=== PATIENT | male | born 1990 | race Caucasian/White ===

== ENCOUNTER 2020-06-09 09:36 | Emergency (ER) | payer BC, OTHER ==
[2020-06-09 09:48] VITALS: BP 135/54; PULSE 53
[2020-06-09] MEDS ORDERED: Ondansetron 4 MG/2 ML SDV IVPUSH ONE (09:50)
--- NOTE | 2020-06-09 10:01 | EDM.PDOC ---
<KimGeronimo maria - Last Filed: 06/09/20 10:45> ED HPI GENERAL MEDICAL PROBLEM - General Chief Complaint: Abdominal Pain Stated Complaint: ABDOMINAL PAIN Time Seen by Provider: 06/09/20 09:38 - Related Data Allergies Allergy/AdvReac Type Severity Reaction Status Date / Time No Known Allergies Allergy Verified 06/09/20 09:48 Home Meds: Home Meds Diclofenac Sodium [Voltaren] 50 mg PO Q8HR 7 Days #21 tab.ec 06/09/20 [Rx] Hydrocodone/Acetaminophen [[place] 5-325 Tablet] 1 each PO Q6H 5 Days #20 tablet 06/09/20 [Rx] Ondansetron [Zofran ODT] 4 mg PO Q6H PRN 4 Days #16 tab.dis 06/09/20 [Rx] Course - Re-Assessments/Exams Free Text/Narrative Re-Assessment/Exam: 06/09/20 10:45 Attending physician note I have seen and evaluated the patient with the advanced practice provider. Chief Complaint: Right flank pain Brief HPI: 29-year-old male with sudden onset right-sided flank pain radiating towards the right lower quadrant and groin. Even has some pain down into the testicles. Sudden onset. Severe. Cannot get into a comfortable position. Multiple episodes of vomiting. ROS: Reviewed and agree Focused Exam: VITAL SIGNS: Reviewed. GENERAL: Awake, conversant, GCS 15, appears uncomfortable, pale and diaphoretic, cannot get into a comfortable position HEAD: No visible signs of trauma EYES: Pupils equal, EOM grossly intact EARS: Hearing grossly intact. MOUTH: No visible lesions NECK: Appears supple CHEST: Breathing comfortably, clear lung sounds CARDIAC: Regular rhythm ABDOMEN: Soft, nontender, benign exam, no CVA tenderness NEUROLOGIC EXAM: Awake and Alert, non-focal SKIN: No visible rashes EXTREMITIES: No deformities noted VASCULAR: Appears well perfused Assessment & Plan: Biliary colic, renal colic, appendicitis Given the presentation the patient most likely has renal colic. We will obtain labs, UA, CT without contrast. Departure - Departure Disposition: Home, Self-Care 01 Clinical Impression: Kidney calculi - Discharge Information Prescriptions: Hydrocodone/Acetaminophen [[place] 5-325 Tablet] 1 each PO Q6H 5 Days #20 tablet Diclofenac Sodium [Voltaren] 50 mg PO Q8HR 7 Days #21 tab.ec Ondansetron [Zofran ODT] 4 mg PO Q6H PRN 4 Days #16 tab.dis PRN Reason: Nausea Referrals: PCP,None [Primary Care Provider] - Forms: ED Department Discharge <Deepika Miramontes - Last Filed: 06/09/20 11:58> ED HPI GENERAL MEDICAL PROBLEM - General Source of Information: Reports: Patient History Limitations: Reports: No Limitations - History of Present Illness INITIAL COMMENTS - FREE TEXT/NARRATIVE: 29 y.o male With no significant past medical history presenting this morning with abdominal pain starting in his right flank, right lower quadrant and suprapubic region as of 745 this morning. States the pain is constant and has not gotten any better. Still drank 1 energy drink this morning and last meal was last night. Denies any fevers, chills, body aches, hematuria, polyuria, dysuria, diarrhea, constipation has not used anything [id number]. Denies recent alcohol use. Denies illicit drug abuse ever. Denies any history of abdominal surgeries or any trauma. Onset: Today RLQ Pain Score (Numeric/FACES): 7 Past Medical History HEENT History: Reports: None Cardiovascular History: Reports: None Respiratory History: Reports: Pneumonia, Recurrent Gastrointestinal History: Reports: None Genitourinary History: Reports: None Musculoskeletal History: Reports: None Neurological History: Reports: None Psychiatric History: Reports: None Endocrine/Metabolic History: Reports: None Hematologic History: Reports: None Immunologic History: Reports: None Oncologic (Cancer) History: Reports: None Dermatologic History: Reports: None - Infectious Disease History Infectious Disease History: Reports: None - Past Surgical History Head Surgeries/Procedures: Reports: None HEENT Surgical History: Reports: None Cardiovascular Surgical History: Reports: None Respiratory Surgical History: Reports: None GI Surgical History: Reports: None Male Surgical History: Reports: None Endocrine Surgical History: Reports: None Neurological Surgical History: Reports: None Musculoskeletal Surgical History: Reports: Other (See Below) Oncologic Surgical History: Reports: None Dermatological Surgical History: Reports: None Social & Family History - Family History Family Medical History: Noncontributory - Tobacco Use Smoking Status *Q: Current Every Day Smoker Years of Tobacco use: 7 Packs/Tins Daily: 0.5 - Caffeine Use Caffeine Use: Reports: Energy Drinks, Soda - Recreational Drug Use Recreational Drug Use: No ED ROS GENERAL - Review of Systems Review Of Systems: See Below Constitutional: Reports: No Symptoms HEENT: Reports: No Symptoms Respiratory: Reports: No Symptoms Cardiovascular: Reports: No Symptoms GI/Abdominal: Reports: Abdominal Pain. Denies: Black Stool, Bloody Stool, Diff iculty Swallowing ED EXAM, GI/ABD - Physical Exam Exam: See Below Exam Limited By: No Limitations General Appearance: Alert, Mild Distress Ears: Normal External Exam, Normal Canal Nose: Normal Inspection Throat/Mouth: Normal Inspection, Normal Oropharynx Head: Atraumatic, Normocephalic Neck: Supple, Non-Tender Respiratory/Chest: No Respiratory Distress, Lungs Clear, Normal Breath Sounds, No Accessory Muscle Use, Chest Non-Tender Cardiovascular: Regular Rate, Rhythm GI/Abdominal Exam: Other (+abdominal tenderness in RLQ/right flamnk ...mild suprapubic tenderness...no rebound tenderness..no rebound tenderness...normoactive BS ) (Male) Exam: Other (no testicualr tenderness ) Back Exam: Full Range of Motion Extremities: Normal Range of Motion, Non-Tender Neurological: Alert, Oriented, Normal Cognition Psychiatric: Normal Affect Skin Exam: Warm Course - Vital Signs Last Recorded V/S: Last Vital Signs Temp 96.5 F L 06/09/20 09:46 Pulse 53 L 06/09/20 09:46 Resp 17 06/09/20 09:46 BP 135/54 L 06/09/20 09:46 Pulse Ox 98 06/09/20 09:46 - Orders/Labs/Meds Orders: Active Orders 24 hr Category Date Time Status Promethazine [Phenergan] Med 06/09/20 10:13 Active 25 mg PO Q4H PRN Medication Orders Promethazine HCl (Phenergan) 25 mg PO Q4H PRN PRN Reason: Nausea/Vomiting Labs: Laboratory Tests 06/09/20 06/09/20 06/09/20 Range/Units 09:47 09:47 10:03 WBC 7.64 (4.0-11.0) K/uL RBC 5.27 (4.50-5.90) M/uL Hgb 15.1 (13.0-17.0) g/dL Hct 45.0 (38.0-50.0) % MCV 85.4 (80.0-98.0) fL MCH 28.7 (27.0-32.0) pg MCHC 33.6 (31.0-37.0) g/dL RDW Std Deviation 40.6 (28.0-62.0) fl RDW Coeff of [place] 13 (11.0-15.0) % Plt Count 236 (150-400) K/uL MPV 10.90 (7.40-12.00) fL Neut % (Auto) 72.6 (48.0-80.0) % Lymph % (Auto) 18.2 (16.0-40.0) % [place] % (Auto) 5.8 (0.0-15.0) % Eos % (Auto) 3.1 (0.0-7.0) % Baso % (Auto) 0.3 (0.0-1.5) % Neut # (Auto) 5.6 (1.4-5.7) K/uL Lymph # (Auto) 1.4 (0.6-2.4) K/uL [place] # (Auto) 0.4 (0.0-0.8) K/uL Eos # (Auto) 0.2 (0.0-0.7) K/uL Baso # (Auto) 0.0 (0.0-0.1) K/uL Nucleated RBC % 0.0 /100WBC Nucleated RBCs # 0 K/uL Sodium 139 (136-148) mmol/L Potassium 4.3 (3.5-5.1) mmol/L Chloride 102 (98-107) mmol/L Carbon Dioxide 24.8 (21.0-32.0) mmol/L BUN 22 H (7.0-18.0) mg/dL Creatinine 1.0 (0.8-1.3) mg/dL Est Cr Clr Drug Dosing 103.55 mL/min Estimated GFR (MDRD) > 60.0 ml/min Glucose 149 H (74-106) mg/dL Calcium 9.3 (8.5-10.1) mg/dL Total Bilirubin 0.7 (0.2-1.0) mg/dL AST 35 (15-37) IU/L ALT 79 H (14-63) IU/L Alkaline Phosphatase 94 (46-116) U/L Total Protein 8.1 (6.4-8.2) g/dL Albumin 4.6 (3.4-5.0) g/dL Globulin 3.5 (2.6-4.0) g/dL Albumin/Globulin Ratio 1.3 (0.9-1.6) Urine Color YELLOW Urine Appearance CLEAR Urine pH 5.5 (5.0-8.0) Ur Specific [place] >= 1.030 (1.001-1.035) Urine Protein NEGATIVE (NEGATIVE) mg/dL Urine Glucose (UA) NEGATIVE (NEGATIVE) mg/dL Urine Ketones NEGATIVE (NEGATIVE) mg/dL Urine Occult Blood LARGE H (NEGATIVE) Urine Nitrite NEGATIVE (NEGATIVE) Urine Bilirubin SMALL H (NEGATIVE) Urine Ictotest NEGATIVE Urine Urobilinogen 0.2 (<2.0) EU/dL Ur Leukocyte Esterase NEGATIVE (NEGATIVE) Urine RBC 6-8 (0-2/HPF) Urine WBC RARE (0-5/HPF) Ur Epithelial Cells FEW (NONE-FEW) Amorphous Sediment LIGHT (NEGATIVE) Urine Bacteria FEW (NEGATIVE) Urine Mucus LIGHT (NONE-MOD) Meds: Medications Generic Name Dose Route Start Last Admin Trade Name Freq PRN Reason Stop Dose Admin Promethazine HCl 25 mg 06/09/20 10:13 Phenergan PO Q4H PRN Nausea/Vomiting Discontinued Medications Generic Name Dose Route Start Last Admin Trade Name Freq PRN Reason Stop Dose Admin Hydromorphone HCl 1 mg 06/09/20 10:06 06/09/20 10:11 Dilaudid IVPUSH 06/09/20 10:07 1 mg ONETIME ONE Administration Ketorolac Tromethamine 15 mg 06/09/20 10:03 06/09/20 10:10 Toradol IVPUSH 06/09/20 10:04 15 mg ONETIME ONE Administration Ondansetron HCl 4 mg 06/09/20 09:50 06/09/20 09:54 Zofran IVPUSH 06/09/20 09:51 4 mg ONETIME ONE Administration - Re-Assessments/Exams Free Text/Narrative Re-Assessment/Exam: Results Of CT abdomen pelvis suggesting 4.7 mm stone in right UVJ, also discussed findings of 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 Pain medication anti-inflammatories and antiemetics will be prescribed for patient on outpatient basis; Advised to return to ED if pain worsens, intractable nausea vomiting develop, despite prescribed medications, fevers, chills, body aches develop. Patient understood and agreed. Copy of CT scan provided to patient 06/09/20 11:56 Departure - Departure Time of Disposition: 11:51 Sepsis Event Note (ED) - Evaluation Sepsis Screening Result: No Definite Risk - Focused Exam Vital Signs: Vital Signs Temp Pulse Resp BP Pulse Ox 06/09/20 09:46 96.5 F L 53 L 17 135/54 L 98 - My Orders Last 24 Hours: My Active Orders 06/09/20 10:13 Promethazine [Phenergan] 25 mg PO Q4H PRN - Assessment/Plan Last 24 Hours: My Active Orders 06/09/20 10:13 Promethazine [Phenergan] 25 mg PO Q4H PRN
[2020-06-09] MEDS ORDERED: Ketorolac 30 MG/ML SDV IVPUSH ONE (10:03)
[2020-06-09] MEDS ORDERED: HYDROmorphone 1 MG/ML Syringe IVPUSH ONE (10:06)
[2020-06-09] MEDS ORDERED: Promethazine 25 MG Tab PO PRN (10:13)
[2020-06-09 10:28] LABS: BLOOD UREA NITROGEN,BUN 22 mg/dL (7.0-18.0); CARBON DIOXIDE,CO2 24.8 mmol/L (21.0-32.0); CHLORIDE,CL 102 mmol/L (98-107); GLUCOSE RANDOM 149 mg/dL (74-106); POTASSIUM,K 4.3 mmol/L (3.5-5.1); SODIUM,NA 139 mmol/L (136-148)
--- NOTE | 2020-06-09 11:36 | CT ---
CT abdomen and pelvis Technique: Multiple axial sections were obtained from above the dome of the diaphragm inferiorly through the pubic symphysis. Intravenous and oral contrast not utilized. Study has been performed as a ureteral stone protocol. Findings: Dilated right ureter is seen. This finding is caused by an obstructing distal right ureteral stone measuring approximately 4.7 mm which is located within the distal right ureter at the UVJ. No other abnormal calcifications are seen within the ureters. Slightly dense renal pyramids are seen raising the possibility of medullary sponge kidney. No other abnormal calcifications are seen. Other findings: Visualized lung bases shows slight posterior atelectasis. Liver contains no focal abnormality. Spleen shows no discrete abnormality. Adrenal glands show no nodule. Pancreas shows no abnormality. Gallbladder contains no calcified gallstones. Aorta shows no aneurysm. No retroperitoneal adenopathy or mesenteric abnormalities are seen. No pelvic mass or adenopathy is seen. No free fluid or inflammatory change is appreciated. Appendix is seen which is normal in size. Bone window settings were reviewed. No acute osseous finding is appreciated. Impression: 1. Dilated right ureter caused by a 4.7 mm stone located within the distal right ureter at the UVJ. 2. Findings suspicious for medullary sponge kidney. 3. Other findings believed to be incidental as noted above. Diagnostic code #3 This report was dictated in MDT
== END 2020-06-09 12:10 | disposition home or self-care (01) ==
LOC: MW.ED 09:36
DX: N20.2 Calculus of kidney with calculus of ureter (principal)
CPT/HCPCS: 36415; 74176; 80053; 81001; 85025; 96374; 96375; 99284; J1170; J1885; J2405

== ENCOUNTER 2025-06-11 10:13 | Emergency (ER) | payer OTHER ==
[2025-06-11] MEDS ORDERED: Sodium Chloride 0.9% 2.5 ML Syringe FLUSH PRN (11:31)
[2025-06-11] MEDS ORDERED: Sodium Chloride 0.9% 10 ML Syringe FLUSH PRN (11:31)
[2025-06-11 11:36] LABS: BASE EXCESS VENOUS 4.9 (-2.0-3.0); BASOPHILS ABSOLUTE AUTO 0.02 K/uL (0.00-0.20); BASOPHILS PERCENT AUTO 0.3 % (0.0-1.0); BICARBONATE,VENOUS 29.0 mEq/L (22-29); EOSINOPHILS ABSOLUTE AUTO 0.10 K/uL (0.00-0.45); EOSINOPHILS PERCENT AUTO 1.7 % (0.0-6.0); IMMATURE GRAN ABSOLUTE AUTO 0.01 K/uL (0.00-0.05); IMMATURE GRAN PERCENT AUTO 0.2 % (0.0-0.4); LYMPHOCYTES ABSOLUTE AUTO 1.78 K/uL (1.00-4.80); LYMPHOCYTES PERCENT AUTO 30.2 % (24.0-44.0); MEAN PLATELET VOLUME 11.3 fL (9.4-12.4); MONOCYTES ABSOLUTE AUTO 0.34 K/uL (0.00-0.80); MONOCYTES PERCENT AUTO 5.8 % (0.0-8.0); NEUTROPHILS ABSOLUTE AUTO 3.64 K/uL (1.80-7.70); NEUTROPHILS PERCENT AUTO 61.8 % (41.0-71.0); NRBC ABSOLUTE 0.00 K/uL (0.00-0.02); NRBC PERCENT 0.0 /100WBC (0.0-0.2); PCO2 VENOUS 41.0 mmHG (41-51); PH,VENOUS 7.46 (7.32-7.43); PLATELET COUNT,PLT 197 K/uL (150-400); PO2 VENOUS 30.0 mmHG (35-45); RED BLOOD CELL COUNT 5.27 M/uL (4.52-5.90); WHITE BLOOD CELL COUNT,WBC 5.89 K/uL (3.9-11.3)
[2025-06-11 11:58] LABS: A/G RATIO 1.2 (0.9-1.6); ALANINE AMINOTRANSFERASE,ALT 99.0 IU/L (14-63); ASPARTATE AMNIOTRANSFERASE,AST 31.0 IU/L (15-37); BILIRUBIN TOTAL 0.7 mg/dL (0.2-1.0); BLOOD UREA NITROGEN,BUN 11.0 mg/dL (7.0-18.0); CARBON DIOXIDE,CO2 29.0 mmol/L (21.0-32.0); CHLORIDE,CL 98.0 mmol/L (98-107); CREATININE 0.9 mg/dL (0.8-1.3); EST CRCL DRUG DOSING (CG) 109.78 mL/min; GLUCOSE RANDOM 363.0 mg/dL (74-106); POTASSIUM,K 4.2 mmol/L (3.5-5.1); PROTEIN TOTAL,TP 7.2 g/dL (6.4-8.2); SODIUM,NA 133.0 mmol/L (136-148)
[2025-06-11 12:00] LABS: ESTIMATED GFR 114.0 mL/min (>60)
[2025-06-11 12:10] VITALS: PULSE 66
[2025-06-11 12:15] LABS: APPEARANCE,URINE CLEAR; GLUCOSE,URINE >=1000 mg/dL (NEGATIVE); OCCULT BLOOD,URINE NEGATIVE (NEGATIVE)
[2025-06-11 12:22] LABS: EPITHELIAL CELLS,URINE RARE (NONE-FEW)
[2025-06-11 17:25] VITALS: BP 124/83
== END 2025-06-11 14:13 | disposition home or self-care (01) ==
LOC: MW.ED 10:13
DX: R73.9 Hyperglycemia, unspecified (principal); F17.200 Nicotine dependence, unspecified, uncomplicated
CPT/HCPCS: 36415; 80053; 81001; 82009; 82803; 82947; 83690; 83735; 85025; 96360; 99284; J7030; 99283